=== PATIENT | female | born 2000 | race Hispanic/Latino ===

== ENCOUNTER 2025-01-26 20:24 | Emergency (ER) | payer SELFPAY ==
[~2025-01-26] VITALS: Ht 154.9 cm; Wt 54.4 kg
[2025-01-26 21:03] LABS: IMMATURE GRANULOCYTE ABSOLUTE 0.02 K/uL (0-1); NUCLEATED RED BLOOD CELLS 0.0 % (0.0-0.19); PLATELET COUNT (AUTO) 221 K/uL (130-400); RED BLOOD CELL COUNT(AUTO) 4.89 MIL/uL (4.00-5.50); RED CELL DISTRIBUTION WIDTH 12.6 % (11.0-15.5); WHITE BLOOD COUNT (AUTO) 7.5 K/uL (4.8-10.8)
[2025-01-26 21:12] LABS: CREATININE 0.8 mg/dL (0.5-1.0); GLOMERULAR FILTR. RATE CALC 107.0 mL/min (>90); GLUCOSE,RANDOM 86.0 mg/dL (70-105); SODIUM SERUM 140.0 mmol/L (136-145); UREA NITROGEN, BLOOD 12.0 mg/dL (7-18)
[2025-01-26 21:48] LABS: APPEARANCE,URINE CLEAR (CLEAR); GLUCOSE, URINE (UA) NEGATIVE (NEGATIVE); LEUKOCYTE ESTERASE ,URINE NEGATIVE Leu/uL (NEGATIVE); NITRATE,URINE NEGATIVE (NEGATIVE); OCCULT BLOOD,URINE LARGE (NEGATIVE)
--- NOTE | 2025-01-26 21:55 | ERN ---
General Chief Complaint: Vaginal Problems/Bleeding Stated Complaint: PERIOD FOR A MONTH AND CRAMPS Time Seen by MD: 20:27 History of Present Illness Initial Comments 24-year-old female here for evaluation of vaginal bleeding. Patient was concerned as she recently had sexual intercourse with her boyfriend and wanted to see if she was . Allergies: Coded Allergies: No Known Allergies (Unverified Allergy, Unknown, 01/26/25) Past Medical History Past Medical History: No Pertinent History Past Surgical History: None Genitourinary: (+) vaginal bleeding Review of Systems: was completed, & the rest were negative. Physical Exam Physical Exam Dictation GENERAL APPEARANCE NAD, activity normal for age, well developed/ well nourished, no cyanosis, pallor, or diaphoresis. EYES lids/conjunctiva normal. EARS/NOSE/THROAT Mucous membranes moist, nares normal, lips/teeth normal uvula midline without oral pharyngeal erythema, exudate or swelling TMs normal bilaterally. No lymphangitis/lymphedema. HEAD/NECK normocephalic atraumatic, no facial trauma, neck is supple. RESPIRATORY respiratory effort normal, speaks in full sentences, no tripod position, no accessory muscle use. Lungs clear to auscultation without rhonchi, wheezes, rales CARDIAC Regular rate and rhythm, no edema. ABDOMINAL Soft, ND/NT. No evidence of fluid wave. No pulsatile masses on exam, rebound tenderness, Shepherd sign or pain over Mcburney's point. MUSCLES/EXTREMITIES No abnormal range of motion, no swelling. SKIN Warm, pink and dry. No rashes, dermatoses, petechiae or lesions. NEUROLOGICAL Speech is clear and appropriate. Normal level of consciousness. Gait and coordination are normal. 5/5 strength in all extremities. PSYCH Normal mood and affect. Judgement/competence is appropriate Results Laboratory and Microbiology Lab and Micro Result Laboratory Tests Test 01/26/25 20:49 White Blood Count 7.5 K/uL (4.8-10.8) Red Blood Count 4.89 MIL/uL (4.00-5.50) Hemoglobin 13.8 g/dL (12.0-16.0) Hematocrit 41.9 % (36-48) Mean Corpuscular Volume 85.7 fL (79-99) Mean Corpuscular Hemoglobin 28.2 pg (27.0-33.0) Mean Corpuscular Hemoglobin Concent 32.9 g/dL (32.0-36.0) Red Cell Distribution Width 12.6 % (11.0-15.5) Platelet Count 221 K/uL (130-400) Mean Platelet Volume 10.0 fL (7.5-10.5) Immature Granulocyte % (Auto) 0.3 % (0-1) Neutrophils (%) (Auto) 53.7 % (40.0-77.0) Lymphocytes (%) (Auto) 38.9 % (21.0-51.0) Monocytes (%) (Auto) 5.5 % (3.0-13.0) Eosinophils (%) (Auto) 0.9 % (0.0-8.0) Basophils (%) (Auto) 0.7 % (0.0-5.0) Neutrophils # (Auto) 4.0 K/uL (1.8-7.7) Lymphocytes # (Auto) 2.9 K/uL (1.0-4.8) Monocytes # (Auto) 0.4 K/uL (0.1-1.0) Eosinophils # (Auto) 0.07 K/uL (0.00-0.70) Basophils # (Auto) 0.05 K/uL (0.00-0.20) Absolute Immature Granulocyte (auto 0.02 K/uL (0-1) Nucleated Red Blood Cells 0.0 % (0.0-0.19) Sodium Level 140 mmol/L (136-145) Potassium Level 3.9 mmol/L (3.5-5.1) Chloride Level 103 mmol/L (101-111) Carbon Dioxide Level 29 mmol/L (21-32) Blood Urea Nitrogen 12 mg/dL (7-18) Creatinine 0.8 mg/dL (0.5-1.0) Glomerular Filtration Rate Calc 107 mL/min (>90) Random Glucose 86 mg/dL (70-105) Total Calcium 9.1 mg/dL (8.5-10.1) Serum Test, Qualitative NEGATIVE (NEGATIVE) MDM 24-year-old female here for evaluation of vaginal bleeding. She is primarily concerned and wants to see if she is at this time. We will get basic labs to rule out anemia and . Likely discharge home. Labs reassurring. Send home ED Course Orders Procedure Category Date Status Time Cbc With Differential LAB 01/26/25 Complete 20:27 Basic Metabolic Panel LAB 01/26/25 Complete 20:27 Testing, LAB 01/26/25 Complete Serum Hcg 20:27 Urinalysis Profile LAB 01/26/25 In Process 20:27 Vital Signs Date Time Temp Pulse Resp B/P (MAP) Pulse Ox O2 Delivery O2 Flow Rate FiO2 01/26/25 20:26 97.9 72 16 113/70 100 Room Air 0 DX & DISP Disposition: Discharge Departure Impression: Primary Impression: Vaginal bleeding Condition: Stable ZANDRA JIM MD Jan 26, 2025 21:55
[2025-01-26 22:04] LABS: ADD UA MICROSCOPIC YES
[2025-01-26 22:07] LABS: SQUAMOUS EPITHELIAL CELL,UR FEW /HPF (0-2)
[2025-01-26 22:30] VITALS: BP 108/68; PULSE 80; RESP 16; TEMP 98.2; O2SAT 100
== END 2025-01-26 22:31 | disposition home or self-care (01) ==
LOC: EDH 20:24
DX: N93.9 Abnormal uterine and vaginal bleeding, unspecified (principal)
CPT/HCPCS: 36415; 80048; 81001; 84703; 85025; 99283